=== PATIENT | male | born 1970 | race Caucasian/White ===

== ENCOUNTER → 2017-09-21 13:35 | Outpatient (CLI) | payer MEDICAID, SELFPAY ==
--- NOTE | 2017-09-21 13:50 | RAD_ITS ---
STUDY: X-RAY - PELVIS AND LEFT HIP REASON FOR EXAM: Male, 47 years old. Increasing left hip pain. TECHNIQUE: Radiological exam, hip, unilateral, with pelvis when performed; 2 or 3 views. COMPARISON: None. FINDINGS: There is a non-specific bowel gas pattern. There are multiple calcified phleboliths. Normal bilateral iliac wings, sacroiliac joints and visualized sacrum. Normal bilateral superior and inferior pubic rami. Normal pubic symphysis. Normal bilateral ischial tuberosities. Normal visualized femoral head. There is cortical sclerosis with sub-cortical cyst formation of the acetabulum. There is mild articular joint space narrowing of the hip. RAD/Hip 2-3 Views with Pelvis IMPRESSION: Degenerative changes of the hip joints bilaterally. Electronically Signed: Darrian Wilhelm MD at 15:50 EST Tel [phone], Service support ,
== END ==
PROVIDERS: Visit Provider Anesthesiology Pain Medicine
DX: M16.0 Bilateral primary osteoarthritis of hip (principal)
CPT/HCPCS: 73502

== ENCOUNTER → 2018-07-30 06:40 | Outpatient (CLI) | payer MEDICAID, SELFPAY ==
--- NOTE | 2018-07-30 06:46 | MRI_ITS ---
STUDY: MRI LUMBAR SPINE WITHOUT CONTRAST REASON FOR EXAM: Male, 47 years old. back pain, rt leg pain. TECHNIQUE: Standardized fat and water weighted pulse sequences were obtained in the sagittal and axial planes. COMPARISON: None FINDINGS: T12-L1: There is minimal disc space narrowing and endplate spondylosis. There is no significant disc herniation, central canal or foraminal stenosis. Normal lumbar lordosis. There is no substantial scoliosis. Normal conus medullaris that terminates at the L1 L1-2: There is minimal disc space narrowing and endplate spondylosis. There is no significant disc herniation, central canal or foraminal stenosis. L2-3: There is mild disc space narrowing and endplate spondylosis. There is no significant disc herniation, central canal or foraminal stenosis. There is a moderate disc bulge and facet hypertrophy with mild central canal stenosis. There is moderate right and mild left foraminal stenosis. L3-4: There is mild disc space narrowing and endplate spondylosis. There is no significant disc herniation, central canal or foraminal stenosis. There is a moderate disc bulge and facet hypertrophy with mild central canal stenosis. There is mild right and moderate left foraminal stenosis. L4-5: There is minimal disc space narrowing and endplates spondylosis. There is a mild disc bulge and facet hypertrophy with mild central canal and mild bilateral foraminal stenosis. L5-S1: There is minimal disc space narrowing and endplates spondylosis. There is minimal disc bulge and facet arthropathy without significant central canal or foraminal stenosis. Normal visualized sacral ala. Normal visualized paraspinous soft tissue structures. MRI/Spine Lumbar (Routine) IMPRESSION: L2/L3: Moderate right foraminal stenosis. L3/L4: Moderate left foraminal stenosis. Electronically Signed: Cole Reed MD at 8:24 EST Tel , Service support ,
== END ==
PROVIDERS: Family Provider Family Medicine; PCP Family Medicine; Referring Provider Anesthesiology Pain Medicine; Visit Provider Anesthesiology Pain Medicine
DX: M48.061 Spinal stenosis, lumbar region without neurogenic claudication (principal)
CPT/HCPCS: 72148

== ENCOUNTER 2021-11-02 11:07 | Outpatient (CLI) | payer MEDICAID, SELFPAY ==
--- NOTE | 2021-11-02 11:21 | RAD_ITS ---
INDICATION: BACK AND LEG PAIN EXAMINATION/TECHNIQUE: X-RAY - XR Spine Lumbar 2 or 3 Views COMPARISON: None. FINDINGS: VERTEBRAE: Preserved vertebral body height. No fracture. No spondylolisthesis. Preservation of the normal lumbar lordosis. Minimal levoscoliotic curvature. Lumbar facet arthropathy most prominent at L4-L5 and L5-S1.. DISCS: Mild to moderate multilevel degenerative disc disease most prominent at the L2-L3 and L3-L4 level. INCLUDED ABDOMEN: Included bowel gas pattern is non-obstructive. Electronically Signed: Stanley Humphrey, at 16:45 EDT , RAD/Lumbar Spine 2 or 3 Views
== END 2021-11-02 23:59 | disposition home or self-care (01) ==
PROVIDERS: PCP Family Medicine; Referring Provider Anesthesiology Pain Medicine; Visit Provider Anesthesiology Pain Medicine
DX: M54.16 Radiculopathy, lumbar region (principal)
CPT/HCPCS: 72100

== ENCOUNTER 2025-07-14 10:02 | Emergency (ER) | payer MEDICARE, MEDICAID, SELFPAY ==
[2025-07-14 10:03] VITALS: BP 141/101; PULSE 84; RESP 18; TEMP 37; O2SAT 99; BMI 29.9
--- NOTE | 2025-07-14 10:24 | CT_ITS ---
PROCEDURE: BRAIN/HEAD WITHOUT CONTRAST 07/14/2025 REASON FOR EXAM: PAIN TECHNIQUE: Procedure Code: CTBR Modality: CT Procedure: BRAIN/HEAD WITHOUT CONTRAST Coronal and Sagittal reconstruction series were provided. One or more dose reduction techniques were used (e.g., Automated exposure control, adjustment of the mA and/or kV according to patient size, use of iterative reconstruction technique. RADIATION DOSE SUMMARY: CTDlvol: 45 mGy DLP: 779 mGycm COMPARISON: None FINDINGS: Brain: There is no evidence of hemorrhage, acute ischemia or mass. No extra- axial fluid collection, midline shift or mass effect. CSF Spaces: Normal Sinuses/Mastoids: Mastoid air cells are clear. Mucosal thickening ethmoid air cells. Complete opacification of the frontal sinuses. Bones: No fracture CT/Brain/Head without Contrast IMPRESSION: 1. No acute intracranial abnormality 2. Frontal and ethmoid sinus disease Reading Location: [id number]
--- NOTE | 2025-07-14 10:26 | EDS_ITS ---
HPI History of Present Illness Chief Complaint: Headache Informant: patient Onset/Context/Timing Onset: Days (3) Context: Sudden Timing: Continuous Quality -Headache: Positive for Sharp and Other (Stabbing) Location: Left side of head Worsened by: Nothing Relieved by: Ice pack Associated Symptoms/Injury Associated Symptoms: Positive for Nausea, Vomiting, Tingling and Photophobia; Negative for Fever, Sore Throat, Sinus Pressure, Numbness, Preceding Aura, Visual Changes, Blurred Vision or Visual Loss Injury - THURMAN: Negative for Direct Trauma or Fall Narrative Narrative: Patient presents with a headache that has been getting worse over the past 3 days. Patient states it began rather suddenly. Patient states it is sharp and stabbing. Patient states it is mainly over the left side of his head. Patient states he got better with ice pack to his head. Patient admits to some subjective chills. Patient also admits to some nausea and vomiting. Patient admits to some tingling in the left side of his head. Patient denies any visual changes or scotoma. Patient does admit to some photophobia. Patient denies any trauma or injury. [facility] Home Medications Medication Instructions Recorded Last Taken Type acetaminophen 500 mg capsule 1,000 mg PO Q6H PRN pain 07/14/25 07/13/25 History cyclobenzaprine 10 mg tablet 10 mg PO DAILY 07/14/25 1 09/12/24 History Allergy/AdvReac Type Severity Reaction Status Date / Time No Known Allergies Allergy Verified 07/14/25 10:04 Surgical History (Updated 07/14/25 @ 11:[address] Derick Eaton DO) History of ear surgery Hx of knee surgery Hx of appendectomy Social History (Updated 07/14/25 @ 11:[address] Derick Eaton DO) Smoking Status: Never smoker Smokeless tobacco user: snuff ROS ROS ED Constitutional Constitutional ED: Reports chills; Denies fever(s) Eyes Eyes: Denies blurry vision or change in vision ENT ENT ED: Denies rhinorrhea or sore throat Cardiovascular Cardiovascular: Denies chest pain or palpitations Respiratory/Chest Respiratory/Chest: Denies cough or dyspnea Gastrointestinal Gastrointestinal: Reports nausea and vomiting Genitourinary Genitourinary ED: Denies dysuria or hematuria Musculoskeletal Musculoskeletal: Denies back pain or neck pain Integumentary Denies abscess or rash Neurologic Neurologic: Reports headache(s); Denies weakness Allergic/Immunologic Allergic/Immunologic ED: Denies mouth swelling or urticaria EXAM Physical Exam Const Vital Signs: 07/14/25 10:03 07/14/25 11:07/14/25 12:00 Temperature 98.6 F Temperature Source Oral Pulse Rate 84 85 84 Respiratory Rate 18 Blood Pressure 141/101 H 131/95 H 130/94 H Blood Pressure Mean 114 107 106 Pulse Ox 99 97 97 Oxygen Delivery Method Room Air Room Air Room Air Positive well nourished and well developed General Appearance ED: well developed and NAD HEENT Reports normocephalic and moist mucous membranes temporal artery tenderness left Neck supple and no JVD Resp normal respiratory effort and clear to auscultation bilaterally Cardio regular rate and regular rhythm GI non-tender and non-distended Palpation: soft Extremity normal to inspection and full ROM General Extremety ED: Negative for edema or tenderness General Extremity: Negative for edema Neuro oriented x3, CN's II-XII intact bilaterally and no sensory deficits noted [place] Coma Scale: document GCS findings Spontaneous Obeys Commands Oriented 15 Sensorium / Orientation: awake and alert Speech: speech normal Motor Exam: strength 5/5 throughout MDM MDM MDM Narrative Medical decision making narrative: Differential diagnosis includes migraine headache, tension headache, temporal arteritis, dehydration, and electrolyte abnormality. CBC will be obtained to assess for leukocytosis and anemia. Basic metabolic profile will be obtained to assess for electrolyte abnormality renal function. Sed rate and CRP will be obtained to assess for inflammatory markers. History & Record Review Additional record(s) reviewed:: No prior records Lab Data Attestation: I reviewed the patient's lab results. Lab results narrative: CBC was reviewed. There is a slight leukocytosis of 11.2. The remainder is within normal limits. Basic metabolic profile was reviewed and was essentially within normal limits. Sed rate was reviewed and was normal at 11. CRP was reviewed and is minimally elevated at 3.99. Labs: Laboratory Results - last 24 hr 07/14/25 10:30 WBC 11.2 H RBC 5.27 Hgb 16.8 H Hct 48.7 MCV 92.4 MCH 31.9 MCHC 34.5 RDW Std Deviation 46.7 H RDW Coeff of Mavis 13.7 Plt Count 292 MPV 10.3 Immature Gran % (Auto) 0.300 Neut % (Auto) 80.9 H Lymph % (Auto) 12.2 L [place] % (Auto) 5.1 Eos % (Auto) 0.9 Baso % (Auto) 0.6 Absolute Neuts (auto) 9.0 H Absolute Lymphs (auto) 1.36 Nucleated RBC % 0 ESR 11 Sodium 137 Potassium 3.7 Chloride 103 Carbon Dioxide 23.3 Anion Gap 11 BUN 7 Creatinine 0.99 Estim Creat Clear Calc 99.21 Est GFR (MDRD) Non-Af 89 BUN/Creatinine Ratio 6.9 L Glucose 122 H Calcium 9.3 C-React Prot Ext Range 3.99 H Radiography Diagnostic Testing: Clinical Impression(s) from Imaging Studies Brain CT 07/14/25 10:24 IMPRESSION: 1. No acute intracranial abnormality 2. Frontal and ethmoid sinus disease Reading Location: [facility] CT scan of the brain was obtained. There is no acute intracranial abnormality. There is frontal and ethmoid sinus disease. This was interpreted by the radiologist. I also independently reviewed the images and did not see any evidence of intracranial bleeding. Treatment and Re-Evaluation Narrative: Patient was given IV fluids, Reglan, and Benadryl. Patient was feeling better after this. Patient states his headache has resolved. Patient was instructed to rest in a dark quiet room. Patient was instructed to follow-up with his primary care physician in 5 to 7 days. Patient understood and was agreeable with the plan. All questions were answered. Discharge Plan Triage Chief Complaint: Headache ED Provider: Derick Eaton Dx/Rx/DC Orders Clinical Impression: Migraine headache, Elevated blood pressure reading without diagnosis of hypertension Instructions: ED, Migraine (Classical) Prescriptions: No Action cyclobenzaprine 10 mg tablet 10 mg PO DAILY acetaminophen 500 mg capsule 1,000 mg PO Q6H PRN (Reason: pain) Primary Care Provider: Robert Almeida Referrals: Martinez Almeida DO [Med Staff - [employer], Internal Medicine] - 5-7 Days Print Language: Vietnamese Disposition Disposition: Home, Self Care
[2025-07-14] MEDS: 0.9% Normal Saline (1000mL) 1,000 ML 999 ML IV (10:39)
[2025-07-14 10:49] LABS: Hematocrit 48.7 % (40-54); Hemoglobin 16.8 g/dL (13.0-16.5); Immature Granulocytes Count 0.030 X10^3/uL (0.0-0.0); Mean Corp Hgb Conc 34.5 g/dL (32-36); Mean Corpuscular Volume 92.4 fL (80-94); Mean Platelet Vol. 10.3 fl (6.2-12.0); NRBC Flagged by Analyzer 0 % (0-5); Platelet Count 292 K/mm3 (150-450); RBC Distribution Width CV 13.7 % (11.6-14.6); RBC Distribution Width SD 46.7 fl (35.1-43.9); Red Blood Count 5.27 M/mm3 (4.6-6.2); White Blood Count 11.2 K/mm3 (4.4-11.0)
[2025-07-14] MEDS: DiphenhydrAMINE 50 MG/ML Syringe 25 MG IV (10:54)
[2025-07-14 11:06] LABS: Anion Gap 11 (5-15); BUN 7 mg/dL (4-19); BUN/Creat Ratio 6.9 RATIO (10-20); CRP 3.99 mg/L (0.0-3.0); Calcium,Total 9.3 mg/dL (7.6-11.0); Carbon Dioxide 23.3 mmol/L (21.0-32.0); Chloride 103 mmol/L (98-108); Estimated Creatinine Clearance 99.21 ml/min (50-250); Glucose 122 mg/dL (70-99); Potassium 3.7 mmol/L (3.3-5.1)
[2025-07-14 11:25] VITALS: BP 131/95; PULSE 85; O2SAT 97
[2025-07-14 12:00] VITALS: BP 130/94; PULSE 84; O2SAT 97
[2025-07-14 13:09] VITALS: BP 141/101; PULSE 65; RESP 18; TEMP 37.1; O2SAT 99
== END 2025-07-14 13:10 | disposition home or self-care (01) ==
PROVIDERS: Emergency Provider Emergency Medicine; PCP Family Medicine; Visit Provider Emergency Medicine
DX: G43.909 Migraine, unspecified, not intractable, without status migrainosus (principal); R03.0 Elevated blood-pressure reading, without diagnosis of hypertension; D72.829 Elevated white blood cell count, unspecified
CPT/HCPCS: 70450; 80048; 85025; 85652; 86140; 96374; 96375; 99283; A4216